=== PATIENT | female | born 1990 | race Caucasian/White ===

== ENCOUNTER 2016-11-28 11:23 | Emergency (ER) | payer SELFPAY ==
[~2016-11-28] VITALS: Ht 160 cm; Wt 47.0 kg
[2016-11-28 11:30] VITALS: BP 136/62; PULSE 102; RESP 16; TEMP 98; O2SAT 96
[2016-11-28] MEDS ORDERED: SODIUM CHLORIDE 0.9% FLUSH 10 ML FLUSH IVF PRN (11:45)
[2016-11-28] MEDS ORDERED: diphenhydrAMINE HCL 50 MG/ML VIAL IVP ONE (11:45)
[2016-11-28] MEDS ORDERED: PROCHLORPERAZINE INJ 10 MG/2 ML VIAL IVP ONE (11:45)
[2016-11-28 11:55] VITALS: O2SAT 98
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
[2016-11-28] MEDS ORDERED: PROM25TA10 PO (13:07)
[2016-11-28 13:39] VITALS: BP 104/69; PULSE 92; RESP 16; O2SAT 98
== END 2016-11-28 13:47 | disposition home or self-care (01) ==
LOC: PHED 11:23
DX: R51 Headache (principal); R25.1 Tremor, unspecified; M54.12 Radiculopathy, cervical region; R11.0 Nausea; Z87.820 Personal history of traumatic brain injury
CPT/HCPCS: 70450; 96374; 96375; 99285; J0780; J1200